=== PATIENT | male | born 1985 | race Caucasian/White ===

== ENCOUNTER 2024-04-23 20:13 | Emergency (ER) | payer MEDICAID ==
[~2024-04-23] VITALS: Ht 190.5 cm; Wt 108.9 kg
[2024-04-23 20:39] VITALS: BP_SYST 111; PULSE 120; RESP 19; TEMP 96.1; O2SAT 98
[2024-04-23] MEDS: NS 1000 ML IV.SOLN IV ONE (22:21)
[2024-04-23] MEDS ORDERED: PIPERACILLIN/TAZOBACTAM 3.375 GM/VIAL (ZOSYN) IV ONE (22:22)
[2024-04-23] MEDS: PIPERACILLIN/TAZO 3.375 GM in D5W 50 ML IV ONE (22:22)
[2024-04-23 22:31] LABS: BASOPHILS # (AUTO) 0.1 K/uL (0.0-0.2); BASOPHILS % (AUTO) 0.7 % (0.0-2.0); HEMATOCRIT 47.5 % (36-54); HEMOGLOBIN 16.6 g/dL (14.0-18.0); LYMPHOCYTES # (AUTO) 2.7 K/uL (1.0-5.5); LYMPHOCYTES % (AUTO) 16.8 % (20.5-51.5); MEAN CORPUSCULAR HEMOGLOBIN 32 pg (27-31); MEAN CORPUSCULAR HGB CONC 35 % (32-36); MEAN CORPUSCULAR VOLUME 93 fL (79.0-98.0); MONOCYTES % (AUTO) 12.7 % (1.7-9.3); NEUTROPHILS % (AUTO) 69.8 % (40.0-70.0); PLATELET COUNT (AUTO) 309 K/uL (130-430); RED BLOOD CELL COUNT(AUTO) 5.11 MIL/uL (4.2-6.2); RED CELL DISTRIBUTION WIDTH 14.1 % (9.0-15.0); WHITE BLOOD COUNT (AUTO) 15.8 K/uL (4.8-10.8)
[2024-04-23 22:35] LABS: ERYTHROCYTE SEDIMENTATION RATE 45 MM/HR (0-15)
[2024-04-23 22:52] LABS: PROTHROMBIN TIME 10.8 SECS (9.5-12.5)
[2024-04-23 23:01] LABS: ALANINE AMINOTRANSFERASE 74 U/L (12-78); ALBUMIN 3.9 g/dL (3.4-4.8); ANION GAP 8 (5-15); ASPARTATE AMINOTRANSFERASE 22 U/L (10-37); CALCIUM 9.2 mg/dL (8.4-11.0); CARBON DIOXIDE 29 mmol/L (23-29); CHLORIDE 98 mmol/L (98-107); GFR AFRICAN AMERICAN 121 mL/min (>90); GFR NON AFRICAN-AMERICAN 100 mL/min (>90); GLUCOSE 120 mg/dL (74-106); POTASSIUM 3.6 mmol/L (3.5-5.1); SODIUM SERUM 135 mmol/L (136-145); TOTAL PROTEIN, SERUM 8.5 g/dL (6.4-8.3); UREA NITROGEN, BLOOD 8 mg/dL (8-21)
[2024-04-23 23:31] LABS: ALCOHOL, BLOOD 3 mg/dL (<10); BILIRUBIN,DIRECT 0.3 mg/dL (0.0-0.3)
[2024-04-24] MEDS: KETOROLAC TROMETHAMINE 30 MG VIAL IVP ONE (00:22)
[2024-04-24 00:33] LABS: BILIRUBIN,URINE 1+ (NEGATIVE); BLOOD, URINE 3+ (NEGATIVE); COLOR,URINE YELLOW (YELLOW); GLUCOSE,URINE NEGATIVE (NEGATIVE); KETONES,URINE TRACE (NEGATIVE); LEUKOCYTE ESTERASE ,URINE 1+ (NEGATIVE); NITRITE, URINE POSITIVE (NEGATIVE); PROTEIN URINE 2+ (NEGATIVE)
[2024-04-24 00:57] LABS: CLARITY/URINE CLOUDY (CLEAR)
[2024-04-24 00:58] LABS: BACTERIA,URINE MANY /HPF (None Seen); WBC,URINE >100 /HPF (0-3)
[2024-04-24 01:04] LABS: CANNABINOID, URINE POSITIVE (NEG <=50); METHAMPHETAMINES SCREEN,URINE POSITIVE (NEG <=500); URINE AMPHETAMINE POSITIVE (NEG <=500)
[2024-04-24 01:06] LABS: BARBITURATE, URINE NEGATIVE (NEG <=200); BENZODIAZEPINE, URINE NEGATIVE (NEG <=150); COCAINE, URINE NEGATIVE (NEG <=150); OPIATE, URINE NEGATIVE (NEG <=100); PHENCYCLIDINE SCREEN,URINE NEGATIVE (NEG <=25); UR TRICYCLIC ANTIDEPRESSANTS NEGATIVE (NEG <=300); URINE METHADONE NEGATIVE (NEG <=200); URINE OXYCODONE SCREEN NEGATIVE (NEG <=100)
[2024-04-24] MEDS ORDERED: VANCOMYCIN HCL 1000 MG/VIAL IV ONE (02:35)
[2024-04-24] MEDS: VANCOMYCIN HCL 1 GM/NS PREMIX 250 ML IV ONE (02:54)
[2024-04-24] MEDS ORDERED: PIPERACILLIN/TAZOBACTAM 3.375 GM/VIAL (ZOSYN) IV ONE (06:27)
[2024-04-24] MEDS: PIPERACILLIN/TAZO 3.375 GM in NS 50 ML IV SCH (06:33)
[2024-04-24] MEDS ORDERED: ACETAMINOPHEN 325 MG TABLET PO ONE (08:06)
[2024-04-24] MEDS ORDERED: ACETAMINOPHEN 325 MG TABLET ONE (08:06)
[2024-04-24] MEDS ORDERED: MAGNESIUM SULFATE 50 ML IV PRN (08:15)
[2024-04-24] MEDS ORDERED: POTASSIUM CHLORIDE 20 MEQ TABLET.ER PO PRN (08:15)
[2024-04-24] MEDS ORDERED: DOCUSATE SODIUM 100 MG CAPSULE PO PRN (08:15)
[2024-04-24] MEDS ORDERED: ONDANSETRON HCL 4 MG/2 ML VIAL IVP PRN (08:15)
[2024-04-24] MEDS ORDERED: NACL 0.9% 1,000 ML IV SCH (08:15)
[2024-04-24] MEDS ORDERED: MUPIROCIN 2% TOPICAL OINTMENT 22 GM NS PRN (08:15)
[2024-04-24] MEDS ORDERED: ZOLPIDEM TARTRATE 5 MG TABLET PO PRN (08:15)
[2024-04-24] MEDS ORDERED: ACETAMINOPHEN 325 MG TABLET PO PRN ×3 (08:15→08:30)
[2024-04-24 08:28] VITALS: BP_SYST 136; PULSE 100; RESP 20; TEMP 98; O2SAT 97
[2024-04-24] MEDS ORDERED: VANCOMYCIN HCL 1,500 MG in NS 250 ML IV SCH (14:00)
== END 2024-04-24 08:26 | disposition left against medical advice (07) ==
LOC: SED 20:13 → STU 04-24 02:05 → UNDOADMIN 04-24 02:05 → UNDODISIN 04-24 08:26 → STU 04-24 08:26
DX: L03.116 Cellulitis of left lower limb (principal); R00.0 Tachycardia, unspecified
CPT/HCPCS: 99285; 96365; 71045; 80076; 80048; 85025; 85610; 85651; 85730; 87040; 87186 ×2; 84484; 87075; 36415; 93005; 73560; 83605; 82397; 96367; 96366; 96375; 80307; 83037; 87086; 81000; 81001; 87070; 81015; G0482; J2543 ×2; J1885; J3370; G0378; J7050

== ENCOUNTER 2024-06-03 15:08 | Inpatient (IN) | payer MEDICAID ==
[~2024-06-03] VITALS: Ht 190.5 cm; Wt 111.8 kg
[2024-06-03 15:40] VITALS: BP_SYST 112; PULSE 130; RESP 19; TEMP 97; O2SAT 99
[2024-06-03] MEDS ORDERED: CEFAZOLIN SOD 2 GM in D5W 50 ML IV ONE (16:15)
[2024-06-03] MEDS ORDERED: ceFAZolin SODIUM 2 GM in D5W 50 ML IV ONE (16:15)
[2024-06-03] MEDS: CEFAZOLIN 2 GM IVPB PREMIX 50 ML IV ONE ×2 (16:35→23:45)
[2024-06-03] MEDS: KETOROLAC TROMETHAMINE 30 MG VIAL IVP ONE (16:35)
[2024-06-03] MEDS: NACL 0.9% 1,000 ML IV ONE (16:37)
[2024-06-03 16:40] LABS: BASOPHILS # (AUTO) 0.1 K/uL (0.0-0.2); BASOPHILS % (AUTO) 0.4 % (0.0-2.0); HEMATOCRIT 48.5 % (36-54); HEMOGLOBIN 16.7 g/dL (14.0-18.0); LYMPHOCYTES # (AUTO) 1.7 K/uL (1.0-5.5); LYMPHOCYTES % (AUTO) 10.4 % (20.5-51.5); MEAN CORPUSCULAR HEMOGLOBIN 33 pg (27-31); MEAN CORPUSCULAR HGB CONC 35 % (32-36); MEAN CORPUSCULAR VOLUME 95 fL (79.0-98.0); MONOCYTES # (AUTO) 1.2 K/uL (0.0-1.0); MONOCYTES % (AUTO) 7.4 % (1.7-9.3); NEUTROPHILS # (AUTO) 13.2 K/uL (1.8-7.7); NEUTROPHILS % (AUTO) 81.8 % (40.0-70.0); PLATELET COUNT (AUTO) 277 K/uL (130-430); WHITE BLOOD COUNT (AUTO) 16.2 K/uL (4.8-10.8)
[2024-06-03 17:21] LABS: ALANINE AMINOTRANSFERASE 86 U/L (12-78); ALBUMIN 3.5 g/dL (3.4-4.8); ANION GAP 11 (5-15); ASPARTATE AMINOTRANSFERASE 30 U/L (10-37); CALCIUM 9.4 mg/dL (8.4-11.0); CARBON DIOXIDE 27 mmol/L (23-29); CHLORIDE 96 mmol/L (98-107); CREATININE 1.13 mg/dL (0.55-1.30); GFR AFRICAN AMERICAN 93 mL/min (>90); GLUCOSE 114 mg/dL (74-106); POTASSIUM 3.3 mmol/L (3.5-5.1); SODIUM SERUM 134 mmol/L (136-145); TOTAL BILIRUBIN 0.9 mg/dL (0.0-1.0); TOTAL PROTEIN, SERUM 8.5 g/dL (6.4-8.3); UREA NITROGEN, BLOOD 9 mg/dL (8-21)
[2024-06-03 17:22] LABS: GFR NON AFRICAN-AMERICAN 77 mL/min (>90)
[2024-06-03 17:24] LABS: BILIRUBIN,DIRECT 0.3 mg/dL (0.0-0.3)
[2024-06-03 17:30] LABS: INR 1.4 (0.80-1.20)
[2024-06-03 17:42] LABS: PROTHROMBIN TIME 14.6 SECS (9.5-12.5)
[2024-06-03] MEDS: POTASSIUM CHLORIDE 20 MEQ/PKT PACKET PO ONE (18:04)
[2024-06-03 18:57] LABS: BARBITURATE, URINE NEGATIVE (NEG <=200); BENZODIAZEPINE, URINE NEGATIVE (NEG <=150); METHAMPHETAMINES SCREEN,URINE POSITIVE (NEG <=500); URINE AMPHETAMINE POSITIVE (NEG <=500); URINE METHADONE NEGATIVE (NEG <=200)
[2024-06-03 18:58] LABS: CANNABINOID, URINE POSITIVE (NEG <=50); COCAINE, URINE NEGATIVE (NEG <=150); OPIATE, URINE NEGATIVE (NEG <=100); PHENCYCLIDINE SCREEN,URINE NEGATIVE (NEG <=25); UR TRICYCLIC ANTIDEPRESSANTS NEGATIVE (NEG <=300); URINE OXYCODONE SCREEN NEGATIVE (NEG <=100)
[2024-06-03 19:22] LABS: BILIRUBIN,URINE NEGATIVE (NEGATIVE); BLOOD, URINE 3+ (NEGATIVE); COLOR,URINE YELLOW (YELLOW); GLUCOSE,URINE NEGATIVE (NEGATIVE); KETONES,URINE NEGATIVE (NEGATIVE); LEUKOCYTE ESTERASE ,URINE 1+ (NEGATIVE); NITRITE, URINE POSITIVE (NEGATIVE); PROTEIN URINE 1+ (NEGATIVE)
[2024-06-03 19:23] LABS: CLARITY/URINE HAZY (CLEAR)
[2024-06-03 19:39] LABS: BACTERIA,URINE FEW /HPF (None Seen); WBC,URINE 20-50 /HPF (0-3)
[2024-06-03 19:40] LABS: MUCUS,URINE 1+ /LPF (None Seen); YEAST,URINE Moderate /HPF (None Seen)
[2024-06-03] MEDS: NACL 0.9% 2,000 ML IV ONE (19:49)
[2024-06-03] MEDS: NACL 0.9% 1,000 ML IV SCH (19:49)
[2024-06-03 20:00] VITALS: BP_SYST 112; PULSE 94; RESP 16; TEMP 98.8
[2024-06-03] MEDS: ceFAZolin SODIUM 1 GM VIAL ONE (21:50)
[2024-06-03] MEDS ORDERED: CEFAZOLIN SODIUM 500 MG in D5W 50 ML IV SCH (22:00)
[2024-06-03] MEDS ORDERED: ceFAZolin SODIUM 2 GM in D5W 50 ML IV SCH (22:30)
[2024-06-03] MEDS: CEFAZOLIN SODIUM 2,000 MG in D5W 50 ML IV SCH (23:44)
[2024-06-04 03:39] VITALS: BP_SYST 113; PULSE 93; RESP 18; TEMP 99.1; O2SAT 98
[2024-06-04] MEDS ORDERED: ceFAZolin SODIUM 2 GM in D5W 50 ML IV SCH (06:30)
[2024-06-04] MEDS ORDERED: HYDROcodone/ACETAMIN 5-325 MG TAB (NORCO/ VICODIN) PO PRN (07:00)
[2024-06-04] MEDS ORDERED: ACETAMINOPHEN 325 MG TABLET PO PRN ×2 (07:00→07:15)
[2024-06-04] MEDS ORDERED: MORPHINE 2 MG/ML INJ. SYRINGE IVP PRN (07:00)
[2024-06-04] MEDS ORDERED: NALOXONE HCL 0.4 MG/ML AMP (NARCAN) IVP PRN (07:00)
[2024-06-04 08:30] VITALS: BP_SYST 112; PULSE 98; RESP 20; TEMP 97.6; O2SAT 98
[2024-06-04] MEDS ORDERED: CEPH-548 PO (20:08)
[2024-06-04] MEDS ORDERED: SULF1TAB48 PO (20:08)
[2024-06-04] MEDS ORDERED: IBUP-1969 PO (20:08)
== END 2024-06-04 10:11 | disposition left against medical advice (07) | DRG 720 ==
LOC: SED 15:08 → SMU 18:59
PROVIDERS: ADMIT Student in an Organized Health Care Education/Training Program; ATTEND Student in an Organized Health Care Education/Training Program
DX: A41.9 Sepsis, unspecified organism (principal); E87.20 Acidosis, unspecified; D68.59 Other primary thrombophilia; E87.1 Hypo-osmolality and hyponatremia; E87.6 Hypokalemia; L03.116 Cellulitis of left lower limb; Z79.899 Other long term (current) drug therapy; Z88.8 Allergy status to other drugs, medicaments and biological substances; F15.90 Other stimulant use, unspecified, uncomplicated; F10.90 Alcohol use, unspecified, uncomplicated
CPT/HCPCS: 36415; 71045; 73060; 73090; 73552; 73590; 80048; 80076; 80307; 81000; 81001; 81015; 83605; 84484; 85025; 85610; 85730; 87040; 87086; 93005; 96365; 99285; J0690; J1885; J7060

== ENCOUNTER 2024-06-04 18:30 | Emergency (ER) | payer MEDICAID ==
[~2024-06-04] VITALS: Ht 182.9 cm; Wt 102.1 kg
[2024-06-04 18:36] VITALS: BP_SYST 113; PULSE 110; RESP 20; TEMP 99; O2SAT 98
[2024-06-04] MEDS ORDERED: IBUP-1969 PO (20:08)
[2024-06-04] MEDS ORDERED: SULF1TAB48 PO (20:08)
[2024-06-04] MEDS ORDERED: CEPH-548 PO (20:08)
[2024-06-04] MEDS: ACETAMINOPHEN 500 MG TABLET PO ONE (20:12)
[2024-06-04] MEDS: IBUPROFEN 600 MG TABLET PO ONE (20:13)
[2024-06-04] MEDS: cephALEXin 500 MG CAPSULE PO ONE (20:14)
[2024-06-04] MEDS: SULFAMETHOXAZOLE/TRIMETHOPR DS 1 TABLET PO ONE (20:14)
[2024-06-04 20:18] VITALS: BP_SYST 113; PULSE 110; RESP 20; TEMP 99; O2SAT 98
== END 2024-06-04 20:17 | disposition home or self-care (01) ==
LOC: SED 18:30
DX: L03.116 Cellulitis of left lower limb (principal); F17.200 Nicotine dependence, unspecified, uncomplicated; F12.90 Cannabis use, unspecified, uncomplicated; F15.90 Other stimulant use, unspecified, uncomplicated; I10 Essential (primary) hypertension; Z98.890 Other specified postprocedural states
CPT/HCPCS: 99284